=== PATIENT | female | born 1985 | race Hispanic/Latino ===

== ENCOUNTER → 2025-02-21 | Day surgery (SDC) | payer OTHER ==
[~2025-02-21] MED LIST: DEXAMETHASONE SOD PHOS INJ 4 MG/ML SDV ONE; FAMOTIDINE 20 MG/2 ML VIAL IV ONE; FENTANYL CITRATE/PF 100MCG/2 ML INJ ONE; LIDOCAINE HCL 2% LOCAL INJ 5 ML SDV VIAL INJ ONE; ONDANSETRON HCL INJ 2MG/ML 2ML 2 MG/ML VIAL ONE; PROPOFOL IV EMULSION 10 MG/ML 20 ML VIAL ONE
[2025-02-21] MEDS: LACTATED RINGER'S 1,000 ML ONE (12:30)
[2025-02-21] MEDS: ACETAMINOPHEN/CODEINE 300MG - 30MG TAB ONE (15:17)
[2025-02-21 16:00] VITALS: BP 121/72; PULSE 59; RESP 18; O2SAT 99
== END | disposition home or self-care (01) ==
LOC: OR 11:48
PROVIDERS: ATTEND Specialist
DX: M65.331 Trigger finger, right middle finger (principal); E66.01 Morbid (severe) obesity due to excess calories; Z68.28 Body mass index [BMI] 28.0-28.9, adult
CPT/HCPCS: 26055; J0690; J1100; J1308; J2003; J2405; J2704; J3010; J7121